=== PATIENT | male | born 1945 | race Two or more races ===

== ENCOUNTER 2022-03-23 18:24 | Emergency (ER) | payer OTHER ==
[~2022-03-23] VITALS: Ht 167.6 cm; Wt 112.0 kg
[2022-03-23] MEDS ORDERED: LISINOPRIL40 MG (19:23)
[2022-03-23] MEDS ORDERED: LIPITOR40 M1 (19:23)
[2022-03-23] MEDS ORDERED: CHILDREN'S ASPI81 MG (19:23)
[2022-03-23] MEDS ORDERED: RISPERDAL1 MG (19:23)
[2022-03-23] MEDS ORDERED: GLUMETZA500 MG (19:23)
[2022-03-23] MEDS ORDERED: DIVALPROEX SOD500 MG (19:24)
[2022-03-23] MEDS ORDERED: AUSTEDO6 MG (19:24)
[2022-03-23] MEDS ORDERED: XANAX0.25 MG (19:24)
== END 2022-03-24 00:58 | disposition home or self-care (01) ==
LOC: ER 18:24
DX: R60.0 Localized edema (principal); Z95.1 Presence of aortocoronary bypass graft; I11.0 Hypertensive heart disease with heart failure; I50.9 Heart failure, unspecified; J44.9 Chronic obstructive pulmonary disease, unspecified; I20.9 Angina pectoris, unspecified; E11.9 Type 2 diabetes mellitus without complications; Z79.84 Long term (current) use of oral hypoglycemic drugs